=== PATIENT | male | born 1945 | race Caucasian/White ===

== ENCOUNTER → 2023-11-13 14:55 | Outpatient (REF) | payer OTHER, SELFPAY | LOC: HWRCS 14:55 | PROVIDERS: ATTENDING PHYSICIAN Family Medicine | DX: R06.09 Other forms of dyspnea (principal) | CPT/HCPCS: 93306 ==

== ENCOUNTER 2023-12-06 06:12 | Inpatient (IN) | payer OTHER, SELFPAY ==
--- NOTE | 2023-11-02 08:16 | CM ---
Patient is scheduled for an elective R TKR on 12/06/23. Spoke with patient prior to surgery via telephone. Introduced role of Orthopedic Navigator. Patient reports that he lives with his in a two story home. There are two steps to enter and a
flight of steps to the second floor. There is a bedroom on the data entry processor. He currently functions independently. He has a wooden cane. He has never had VN services. PCP is Dr. Davidson De La Cruz.
Discussed orthopedic program and post surgical plans. Reviewed anticipated length of stay and that goal is for him to return home at discharge. Also reviewed outpatient PT. Patient is in agreement with tentative plan and will go directly to
outpatient PT at [facility]. He will have support from his when he goes home.
Patient will complete online education.
Plan: Orthopedic Navigator will remain available to assist with the care of patient and will reassess discharge needs after surgery.
[2023-11-14 14:24] VITALS: BMI 46.4
[2023-11-14 14:54] LABS: Hematocrit 46.5 % (39.0-52.0); Hemoglobin 15.5 g/dL (13.0-18.0); Mean Corp Hgb Conc. 33.3 g/dL (33.0-37.0); Mean Corpuscular Hgb 29.1 pg (27.0-31.0); Mean Corpuscular Volume 87.4 fL (80.0-94.0); Mean Platelet Volume 10.2 fL (7.4-10.4); Platelet Count 203 10^3/uL (130-400); Red Blood Cell Count 5.32 10^6/uL (4.70-6.10); Red Cell Dist. Width 13.2 % (11.5-14.5); White Blood Cell Count 8.4 10^3/uL (4.8-10.8)
[2023-11-14 15:06] VITALS: BMI 46.4
[2023-11-14 15:50] LABS: ALT (SGPT) 23 U/L (0-50); AST (SGOT) 23 U/L (17-59); Albumin 4.3 g/dl (3.5-5.0); Alkaline Phosphatase 82 U/L (38-126); Blood Urea Nitrogen 18 mg/dl (9-20); Calcium 9.3 mg/dl (8.4-10.2); Carbon Dioxide 25 mmol/L (22-30); Chloride 104 mmol/L (98-107); Estimated Creatinine Clearance 67 ml/min; Glucose 106 mg/dl (70-99); Potassium 4.1 mmol/L (3.5-5.1); Sodium 139 mmol/L (135-145); Total Bilirubin 0.9 mg/dl (0.2-1.3); Total Protein 6.9 g/dl (6.3-8.2); eGFR 56.23
[2023-12-06] VITALS (13 sets, daily range): BP systolic 122–159; BP diastolic 62–80; PULSE 79; O2SAT 97
[2023-12-06] MEDS: CELEBREX 200 MG PO (07:42)
[2023-12-06] MEDS: TYLENOL 650 MG PO ×4 (07:42→19:40)
[2023-12-06] MEDS: NORMOSOL-R 1000 IV ×2 (07:56→12:10)
[2023-12-06] MEDS: DILAUDID 0.25 MG IV (11:35)
[2023-12-06] MEDS: DILAUDID 0.5 MG IV (11:46)
[2023-12-06] MEDS: DEMEROL 12.5 MG IV (12:01)
--- NOTE | 2023-12-06 12:06 | W.PN.ORTHO ---
Today's Communication / Plan
-
D/c when clinically stable.
Assessment
.
Distal Motor Intact: Yes
Dressing:
Clean, dry and intact.
Assessment:
R knee OA s/p R TKA w/ Dr Santacruz 12/06/23
DVT prophylaxis - ASA, b/l venous foot pumps
HTN - + parametrers - monitor BP
1st degree AV block, incomplete RBBB, and PVCs, asymptomatic - monitor on tele
Chronic kidney disease stage 3 - minimize nephrotoxins as able
GERD and Owens's esophagus - continue PPI therapy
Peripheral neuropathy - add Gabapentin TID
BPH with LUTS - sub Flomax for Tadalafil during admission
Hyperlipidemia
Chronic peripheral edema
Chronic dyspnea on exertion
Fatty liver disease
Splenomegaly
Overactive bladder
Skin cancer, status post excision
COVID 09/2019, without residual side effects
Hearing impairment bilaterally
Prediabetes, A1c 6.0
Morbid obesity, BMI 46.4
Remote history of tobacco abuse
Plan
.
Surgery / Date: R TKA w/ Dr Santacruz 12/06/23
DVT Prophylaxis: Aspirin
Activity:
Out of bed.
PT/OT
Discharge Plan: Home w/ Outpatient PT
Subjective
.
.:
Patient resting comfortably in PACU.
R knee pain currently well tolerated at present.
Denies any new significant complaints.
Vital Signs and Labs
.
Vital Signs and Labs:
Lab Results
11/14/23 14:10
11/14/23 14:10
Temp Pulse Resp BP Pulse Ox
97.2 F 69 18 138/67 96
12/06/23 11:30 12/06/23 11:45 12/06/23 11:45 12/06/23 11:45 12/06/23 11:45
Physical Exam
-
HEENT: No pallor, cyanosis, or jaundice. Throat clear.
NECK: Supple. No JVD.
RESPIRATORY: Lungs clear to auscultation.
CVS: S1, S2 normal. RRR.�
ABDOMEN: Soft, non-tender. No distension. Morbidly obese.
EXTREMITIES: Strength equal, no calf pain with palpation/dorsiflexion. Calves soft.
CAFE SITE ATTENDANT: AOx3. No focal deficits. rent and miscellaneous remittance clerk grossly intact
[2023-12-06] MEDS: NEURONTIN 200 MG PO ×3 (12:10→22:25)
[2023-12-06] MEDS: FLOMAX 0.400000000000000022 MG PO (12:10)
[2023-12-06] MEDS: ROXICODONE 5 MG PO ×3 (12:35→22:24)
--- NOTE | 2023-12-06 15:42 | OR.RPT ---
Addendum entered and electronically signed by Killian Santacruz MD 12/06/23 15:48:
Correction:
EBL 200mL, not 20mL
Original Note:
Operative Report
Operative Report
Orthopaedic Surgery Operative Note
DATE OF OPERATION: 12/06/2023
PREOPERATIVE DIAGNOSES: Osteoarthritis, right knee.
POSTOPERATIVE DIAGNOSES: Osteoarthritis, right knee.
OPERATION PERFORMED: Right total knee arthroplasty (29156 with 22 modifier)
SURGEON: Killian Santacruz MD
ASSISTANTS: Tomasz Beal PA-C who helped with patient and limb positioning and retraction
ANESTHESIA: General
COMPLICATIONS: None.
ESTIMATED BLOOD LOSS: 20mL
DRAINS: None
TOURNIQUET TIME: 39 minutes.
IMPLANTS:
- Reba Persona CR Femur, size 11
- Reba Persona tibia base plate, size F
- Reba Persona ultracongruent articular surface, 12 mm
INDICATIONS: The patient presented to my office with debilitating right knee pain due to osteoarthritis. We reviewed the natural history of this problem, as well as the risks, benefits, and alternatives of various treatment options. The patient
exhausted all nonoperative treatment options and wished to proceed with knee replacement surgery. The patient understood the risks which included, but were not limited to, bleeding, infection, failure to relieve pain, more pain than preop, damage to
blood vessels and nerves, need for reoperation, mechanical failure of the implants, wound healing problems, stiffness, instability, blood clot, pulmonary embolism, myocardial infarction, pneumonia, arrhythmia, CVA, and . The patient accepted
these risks and wished to proceed. All questions were answered, and informed consent was obtained.
PROCEDURE IN DETAIL: The patient was identified in the preoperative holding area. The right knee was identified as the operative site. The patient was taken in the operating room and placed in a supine position on the operating table. General
anesthesia was performed. IV antibiotics and tranexamic acid were administered. An SCD was placed on the left lower extremity. A well-padded tourniquet was placed on the proximal thigh. All bony prominences were well padded. The right lower
extremity was prepped and draped in the usual sterile fashion.
We performed a surgical time-out. An interarticular block was performed with local anesthetic with epinephrine. The limb was exsanguinated with an Esmarch bandage, then the tourniquet was inflated to 250 mmHg. A midline skin incision was made
followed by a medial parapatellar arthrotomy. A subperiosteal peel was performed on the medial tibia. I excised part of the infrapatellar fat pad to improve our visualization as well as tissue over anterior femur. The patella was everted and the
knee was flexed. I excised the remnants of the anterior and posterior cruciate ligaments as well as tibial and femoral osteophytes with rongeurs.
The knee was flexed, and the extramedullary tibial cutting guide was aligned. [place] was aligned at neutral, rotation was centered on the tibial tubercle, and coronal alignment was aligned with the mechanical axis of the tibia and center of the ankle
joint. The cut height was 10mm off the lateral tibia joint surface. The guide was secured into place. The MCL and LCL were protected. The tibia surface was cut. The cut surface was inspected after removal to ensure appropriate height and slope based
on the preoperative plan. The cut was checked with a drop bola. It was centered nicely at the ankle.
A drill was used to open the femoral canal. The intramedullary distal femoral cutting guide was inserted into the femur. This was set at 5 degrees +0. This was secured into place with three pins. The cut level was checked with an dori wing. The
distal femur was cut through the cutting guide. The IM guide was reinserted to double check that the level of resection was flush and in appropriate alignment.
[place]�s line and the transepicondylar axis were marked on the femur. The femoral sizing guide was applied to the anterior femur. Pins were inserted, and the 4-in-1 cutting guide was applied and secured into place. The rotation was compared to
[place]�s line, the transepicondylar axis, and the neutral tibia cut and was found to be appropriate. The width was checked and found to be appropriate and lateralized on the femur. The anterior, posterior, and chamfur cuts were made. A lamina
ibm mainframe developer was used to open the flexion gap, and posterior osteophytes were removed with a curved osteotome. The remnant medial and lateral meniscus were also removed. I prophylactically cauterized the lateral geniculate arteries. A 10mm spacer block
was applied to the flexion gap and was noted to be balanced medially and laterally. The knee was extended, and the block showed symmetric to extension and flexion gaps.
The tibia was exposed and sized. Rotation was set in line with the tibial tubercle and congruent with the femur. The trial was secured into place with two pins. The trial femur was impacted into place, and a trial articular surface was placed. The
knee was taken through range of motion and noted to be stable throughout the arc of motion without gaping or excess tension. The patella tracked centrally throughout the arc of motion without need for further releases. No full thickness cartilage
defects.
The trials were removed. The tibia keel was prepared with the punch and the drill. The bone surfaces were irrigated with sterile saline and dried. The cement was mixed in a vacuum mixer. Cement gun was used to apply cement to the tibial surface and
the undersurface of the tibial implant. Cement was pressurized into the tibial canal and tibia surface. The tibial component was impacted into place. Excess cement was removed. Cement was applied to the femoral surface and the femoral component. The
femoral component was impacted into place, and excess cement removed. A trial articular surface was inserted, and the knee was extended while the cement polymerized. The tourniquet was let down, and meticulous hemostasis was achieved. Dilute
betadine was poured into the wound and allowed to soak for 3 minutes. The knee was irrigated with copious normal saline.
Once the cement was polymerized, the trial articular surface was removed. Any excess cement was removed. The knee was trialed, and the final articular surface was selected and inserted into the tibial locking mechanism. The knee was reduced. A fresh
drape was applied to the surgical field.
The arthrotomy was closed with 0-PDS. Once closed, an interarticular block was performed with local anesthetic with epi. The deep dermal layer was closed with 2-0 PDS, and the subcuticular skin was closed with 3-0 monocryl. A Dermabond Prineo
dressing was applied to the skin in full flexion. Once this was completely dry, a sterile waterproof dressing was applied.
The anesthesia team performed an adductor canal block in the OR. The patient awoke from anesthesia without any difficulties. The sponge and instrument counts were correct x2 at the end of the case.
Of note, 22 modifier was added for BMI >45kg/m2 which added an additional 20 minutes for patient positioning, exposure, and implanting the components.
Sanjay Santacruz MD
[2023-12-06] MEDS: PROTONIX PO (15:45)
[2023-12-06] MEDS: ASPIRIN 325 MG PO ×2 (16:50)
[2023-12-06] MEDS: NORVASC 5 MG PO (16:50)
[2023-12-06] MEDS: ANCEF 5 IV ×2 (17:44→19:45)
[2023-12-06] MEDS: DECADRON 4 MG PO (19:40)
[2023-12-06] MEDS: SENOKOT 17.1999999999999993 MG PO (19:40)
[2023-12-06] MEDS: COLACE 100 MG PO (19:41)
[2023-12-06] MEDS: BACTROBAN 2% OINTMENT 1 APPLIC NASAL (22:25)
[2023-12-07] MEDS: TYLENOL PO (00:22)
[2023-12-07] MEDS: TYLENOL 650 MG PO ×2 (03:04→07:55)
[2023-12-07] MEDS: ANCEF 5 IV (03:05)
[2023-12-07 03:07] VITALS: BP 135/60
[2023-12-07 07:35] VITALS: BP 139/68
[2023-12-07] MEDS: ASPIRIN 325 MG PO ×2 (07:53→07:54)
[2023-12-07] MEDS: ROXICODONE 5 MG PO (07:54)
[2023-12-07] MEDS: DETROL LA 4 MG PO (07:54)
[2023-12-07] MEDS: PROTONIX 40 MG PO (07:55)
[2023-12-07] MEDS: COLACE 100 MG PO (07:55)
[2023-12-07] MEDS: DECADRON 4 MG PO (07:55)
[2023-12-07] MEDS: FLOMAX 0.400000000000000022 MG PO (07:55)
[2023-12-07] MEDS: NEURONTIN 200 MG PO (07:55)
[2023-12-07] MEDS: SENOKOT 17.1999999999999993 MG PO (07:55)
[2023-12-07] MEDS: BACTROBAN 2% OINTMENT 1 APPLIC NASAL (07:57)
--- NOTE | 2023-12-07 08:39 | CM ---
Addendum entered by Monalisa Gracia 12/07/23 09:58:
Patient did well in therapy. He has no concerns about going home and has updated his family.
Addendum entered by Monalisa Gracia 12/07/23 09:01:
Correction to below: PT appointment is scheduled for 12/11.
Original Note:
Reviewed chart and held rounds with PT, OT and nursing. Patient admitted as planned for elective R TKR. Met with patient at bedside. Confirmed information previously obtained for assessment. Also discussed discharge plans. The plan is for patient to
return home at discharge. He will have support from his sons and daughter when he goes home. His is having back issues and will only be able to provide minimal support. Patient will go directly to outpatient PT and will go to [facility]. He has an appointment scheduled for 01/10.
Patient has a rolling walker and cane.
He will use [facility] pharmacy for discharge prescriptions.
[2023-12-07 08:57] VITALS: BP 149/67; PULSE 87; O2SAT 97
--- NOTE | 2023-12-07 09:23 | W.PN.ORTHO ---
Today's Communication / Plan
-
Await PT and OT recs.
D/c later today if remaining clinically stable.
Assessment
.
Distal Motor Intact: Yes
Dressing:
Clean, dry and intact.
Assessment:
R knee OA s/p R TKA w/ Dr Santacruz 12/06/23
DVT prophylaxis - ASA, b/l venous foot pumps
HTN - + parameters - BPs stable
1st degree AV block, incomplete RBBB, and PVCs, asymptomatic - maintaining NSR on tele
Chronic kidney disease stage 3 - continue to minimize nephrotoxins as able
GERD and Owens's esophagus - continue PPI therapy
Peripheral neuropathy - continue Gabapentin TID
BPH with LUTS - sub Flomax for Tadalafil during admission
Hyperlipidemia
Chronic peripheral edema
Chronic dyspnea on exertion
Fatty liver disease
Splenomegaly
Overactive bladder
Skin cancer, status post excision
COVID 09/2019, without residual side effects
Hearing impairment bilaterally
Prediabetes, A1c 6.0
Morbid obesity, BMI 46.4
Remote history of tobacco abuse
Plan
.
Surgery / Date: R TKA w/ Dr Santacruz 12/06/23
DVT Prophylaxis: Aspirin
Activity:
Out of bed.
PT/OT
Discharge Plan: Home w/ Outpatient PT
Subjective
.
.:
Patient resting comfortably in her chair this AM.
Denies any significant complaints overnight.
Pain overall well controlled w/ current pain meds.
Eager for potential d/c today.
Vital Signs and Labs
.
Vital Signs and Labs:
Lab Results
11/14/23 14:10
11/14/23 14:10
Temp Pulse Resp BP Pulse Ox
98.7 F 85 18 139/68 94
12/07/23 07:35 12/07/23 07:55 12/07/23 07:35 12/07/23 07:55 12/07/23 08:00
Non-invasive Hgb result: 14.6
Physical Exam
-
HEENT: No pallor, cyanosis, or jaundice. Throat clear.
NECK: Supple. No JVD.
RESPIRATORY: Lungs clear to auscultation.
CVS: S1, S2 normal. RRR.�
ABDOMEN: Soft, non-tender. No distension. Morbidly obese.
EXTREMITIES: Chronic b/l peripheral edema. Strength equal, no calf pain with palpation/dorsiflexion. Calves soft.
LIDAR SCIENTIST: AOx3. No focal deficits. barrel washer machine grossly intact
[2023-12-07 09:59] VITALS: BP 132/61; PULSE 86; O2SAT 94
--- NOTE | 2023-12-07 10:09 | W.DS.TRANS ---
DC Summary - Coffee Grower
-
Discharge Instructions:
Sleep Apnea Risk High
Discharge Diagnosis/Procedures R knee OA s/p R TKA w/ Dr Santacruz 12/06/23
Diet Regular
Activity As tolerated,With Walker
Driving Restrictions Not until seen by your Dr
Bathing Restrictions OK to Shower
Other Services PT
Wound Care Leave dressing on until seen by surgeon's office
for follow-up in 2 weeks.
Instructions:
Stand-Alone Forms: Total Hip/Knee Replacement D/C
Changes to Home Medications: Yes
Discharge Medications:
DC Medications w/original date entered in [employer]
esomeprazole magnesium 20 mg capsule,delayed release (Nexium) 20 mg PO QPM Gastrointestinal Issue 11/09/23
multivitamin 1 tab PO DAILY Supplement 11/09/23
tadalafil 5 mg tablet 5 mg PO DAILY Blood Pressure 11/09/23
vibegron 75 mg tablet (Gemtesa) 75 mg PO DAILY Urinary Issue 11/09/23
mupirocin 2 % topical ointment 1 applic intranasal BID #1 tube 11/14/23
psyllium 1 packet PO DAILY Constipation 11/14/23
acetaminophen 650 mg tablet,extended release (Tylenol Arthritis Pain) 1,300 mg (2 x 650 mg) PO Q8H #30 tabs 12/07/23
amlodipine 5 mg tablet 5 mg PO QPM Blood Pressure #0 tabs 12/07/23
aspirin 325 mg tablet 325 mg PO DAILY #30 tabs 12/07/23
dexamethasone 4 mg tablet 4 mg PO BID #5 tabs 12/07/23
docusate sodium 100 mg capsule 100 mg PO BID #30 caps 12/07/23
furosemide 20 mg tablet 20 mg PO DAILY Fluid Retention/Swelling #0 tabs 12/07/23
gabapentin 100 mg capsule 200 mg (2 x 100 mg) PO TID neuropathic pain #30 caps 12/07/23
losartan 100 mg tablet 100 mg PO DAILY Blood Pressure #0 tabs 12/07/23
ondansetron HCl 4 mg tablet 4 mg PO Q6H PRN nausea and vomiting #30 tabs 12/07/23
oxycodone 5 mg tablet 5 - 10 mg (1 - 2 x 5 mg) PO Q4H PRN moderate-severe pain #30 tabs 12/07/23
sennosides 8.6 mg tablet (Senna Laxative) 17.2 mg (2 x 8.6 mg) PO BID PRN Constipation #30 tabs 12/07/23
Home Medication Changes
acetaminophen 650 mg tablet,extended release (Tylenol Arthritis Pain) 1,300 mg (2 x 650 mg) PO Q8H #30 tabs 12/07/23
aspirin 325 mg tablet 325 mg PO DAILY #30 tabs 12/07/23
dexamethasone 4 mg tablet 4 mg PO BID #5 tabs 12/07/23
docusate sodium 100 mg capsule 100 mg PO BID #30 caps 12/07/23
gabapentin 100 mg capsule 200 mg (2 x 100 mg) PO TID neuropathic pain #30 caps 12/07/23
ondansetron HCl 4 mg tablet 4 mg PO Q6H PRN nausea and vomiting #30 tabs 12/07/23
oxycodone 5 mg tablet 5 - 10 mg (1 - 2 x 5 mg) PO Q4H PRN moderate-severe pain #30 tabs 12/07/23
sennosides 8.6 mg tablet (Senna Laxative) 17.2 mg (2 x 8.6 mg) PO BID PRN Constipation #30 tabs 12/07/23
Pending Results: No
== END 2023-12-07 11:24 | disposition home or self-care (01) | DRG 470 ==
LOC: 2 SOUTH 06:12
PROVIDERS: Physician Assistant; ADMITTING PHYSICIAN Orthopaedic Surgery; FAMILY PHYSICIAN Family Medicine
PROC: 0SRC0J9 Replacement of Right Knee Joint with Synthetic Substitute, Cemented, Open Approach (ICD-10-PCS; 2023-12-06)
DX: M17.11 Unilateral primary osteoarthritis, right knee (principal); Z68.42 Body mass index [BMI] 45.0-49.9, adult; E66.01 Morbid (severe) obesity due to excess calories; I12.9 Hypertensive chronic kidney disease with stage 1 through stage 4 chronic kidney disease, or unspecified chronic kidney disease; E78.5 Hyperlipidemia, unspecified; I44.0 Atrioventricular block, first degree; N18.30 Chronic kidney disease, stage 3 unspecified
CPT/HCPCS: 36415; 73560; 80053; 83036; 85027; 87070; 93005; 97110; 97116; 97162; 97166; 97535; C1713; C1776

== ENCOUNTER → 2024-02-21 09:27 | Outpatient (REF) | payer OTHER, SELFPAY | LOC: RAD 09:27 | PROVIDERS: ATTENDING PHYSICIAN Physician Assistant Medical | DX: M79.89 Other specified soft tissue disorders (principal) | CPT/HCPCS: 93971 ==